=== PATIENT | male | born 1995 | race Caucasian/White ===

== ENCOUNTER 2016-10-24 20:58 | Emergency (ER) | END 2016-10-25 01:37 | disposition home or self-care (01) | DX: N45.1 Epididymitis (principal) | CPT/HCPCS: 76870; 80053; 81001; 81003; 83605; 85025; 87086; 87591; J0696; J2270; J2405; J7030; Z7610 ==

== ENCOUNTER 2017-01-03 02:59 | Emergency (ER) | payer SELFPAY ==
[~2017-01-03] VITALS: Ht 165.1 cm; Wt 70.0 kg
[~2017-01-03 02:59] MED LIST: CIPR500T4 PO; HYDR-906 PO; IBUP-1542 PO
[2017-01-03 03:09] VITALS: Ht 165.1 cm; Wt 70.0 kg
[2017-01-03] MEDS ORDERED: KETOROLAC 60 MG INJ IM STA (04:27)
[2017-01-03] MEDS ORDERED: DIPHTH/TET/ACEL PERTUSS (ADULT) 0.5 ML VIAL IM* ONE (04:30)
--- NOTE | 2017-01-03 04:51 | ERD ---
ER Documentation Chief Complaint Date/Time DATE: 01/03/17 TIME: 04:49 Chief Complaint R thumb injury 3 days ago (ANGELICA NAYAK NP) HPI 21-year-old male presents to emergency department for complaints of pain on the right thumb, patient states that a fiberglass foreign body may have when inside the right thumb. Patient is complaining of pain sharp pain, 6/10 scale, not better with anything, worse upon touching the area. Patient did not take any medications to help with symptoms. Patient denies any direct trauma and affected area. Patient denies any numbness or tingling. Patient denies any fever or chills. (ANGELICA NAYAK NP) ROS All systems reviewed and are negative except as per history of present illness. (ANGELICA NAYAK NP) Medications Home Meds Active Scripts Tramadol HCl (Tramadol HCl) 50 Mg Tablet, 50 MG PO Q6 for SEVERE PAIN LEVEL 7-10 , #20 TAB Prov:ANGELICA NAYAK NP 01/03/17 Ibuprofen* (Motrin*) 600 Mg Tab, 600 MG PO Q6H Y for PAIN AND OR ELEVATED TEMP, #30 TAB Prov:ANGELICA NAYAK NP 01/03/17 Sulfamethoxazole/Trimethoprim* (Bactrim Ds* Tablet) 1 Each Tablet, 1 TAB PO BID , #20 TAB Prov:ANGELICA NAYAK NP 01/03/17 Cephalexin* (Keflex*) 500 Mg Capsule, 500 MG PO QID for 10 Days, CAP Prov:ANGELICA NAYAK NP 01/03/17 Hydrocodone/Acetaminophen ([place] 5-325 Tablet) 1 Each Tablet, 1 TAB PO Q6H Y for SEVERE PAIN LEVEL 7-10, #20 TAB Prov:ANGELICA NAYAK NP 10/25/16 Ibuprofen* (Motrin*) 600 Mg Tab, 600 MG PO Q6H Y for PAIN AND OR ELEVATED TEMP, #30 TAB Prov:ANGELICA NAYAK NP 10/25/16 Ciprofloxacin Hcl* (Ciprofloxacin Hcl*) 500 Mg Tablet, 500 MG PO BID for 10 Days , TAB Prov:ANGELICA NAYAK NP 10/25/16 Reported Medications [none] Unknown Strength No Conflict Check 10/24/16 Allergies Allergies: Coded Allergies: No Known Allergy (Unverified , 10/24/16) PMhx/Soc Hx Alcohol Use: No Hx Substance Use: Yes (smoke meth) Hx Tobacco Use: No (ANGELICA NAYAK NP) FmHx Family History: No coronary disease, No diabetes, No other (ANGELICA NAYAK NP) Physical Exam Vitals Vital Signs Date Time Temp Pulse Resp B/P Pulse Ox O2 Delivery O2 Flow Rate FiO2 01/03/17 03:09 98.9 108 18 135/76 97 (LUCIANA HERNÁNDEZ) Physical Exam GENERAL: The patient is well developed and appropriate for usual state of health, in no apparent distress. CHEST: Clear to auscultation bilaterally. There are no rales, wheezes or rhonchi. HEART: Regular rate and rhythm. No murmurs, clicks, rubs or gallops. No S3 or S4. ABDOMEN: Soft, nontender and nondistended. Good bowel sounds. No rebound or guarding. No gross peritonitis. No gross organomegaly or masses. No Arias sign or McBurney point tenderness. BACK: No midline or flank tenderness. EXTREMITIES: Equal pulses bilaterally. There is no peripheral clubbing, cyanosis or edema. No focal swelling or erythema. Full range of motion. Grossly neurovascularly intact. NEURO: Alert and oriented. Cranial nerves 2-12 intact. Motor strength in all 4 extremities with 5/5 strength. Sensation grossly intact. Normal speech and gait. SKIN: Noted puncture wound on the palmar aspect of the right thumb. Mild tenderness on palpation, no palpable foreign body. There is no apparent ecchymosis or petechia. The skin is warm and dry. HEMATOLOGIC AND LYMPHATIC: There is no evidence of excessive bruising or lymphedema. No gross cervical, axillary, or inguinal lymphadenopathy. (ANGELICA NAYAK NP) Results 24 hrs Current Medications Medications (Trade) Dose Ordered Sig/Ernestina Route PRN Reason Start Time Stop Time Status Last Admin Dose Admin Diphtheria/ Tetanus/Acell Pertussis (Adacel) 0.5 ml ONCE ONCE IM* 01/03/17 04:30 01/03/17 04:31 DC 01/03/17 04:57 Ketorolac Tromethamine (Toradol) 60 mg ONCE STAT IM 01/03/17 04:27 01/03/17 04:30 DC 01/03/17 04:58 Lidocaine (Xylocaine 1% (Mdv) 20 ml) 2 ml ONCE ONCE SC 01/03/17 05:30 01/03/17 05:31 DC (LUCIANA HERNÁNDEZ) Results 24 hrs Tdap was given to prevent tetanus. Patient tolerated medication well.Patient was given medication for pain here in emergency department, after treatment, patient verbalized feeling much better. Patient's pain is improved. (ANGELICA NAYAK NP) Procedures/MDM Procedure Note: After obtaining informed consent, the wound was irrigated with 250 ml of normal saline and cleaned with diluted betadine. Using aseptic technique, 2 ml of 1% lidocaine was injected on the subcutaneous tissue of the abscess where the fluctuant area is at. After the anesthetic, a 1 cm incision was done in the middle of the fluctuant area of the abscess. Pustular discharge was drained from the abscess. . After the procedure, dry dressing was applied on the area. Patient tolerated procedure well. No foreign body noted. Medical Decision Making: Patient's pain is most likely consistent with a felon of the finger infected puncture wound, no foreign body noted. There is no suspicion for neurovascular compromise. Patient has intact sensation and circulation of the affected extremity. There is low suspicion for septic arthritis. Patient does not have any fever. Radiology exams of the affected area does not show any fracture or dislocation. Disposition: Home. Patient is given prescription for ibuprofen for pain, tramadol for severe pain, Keflex, Bactrim. Patient was advised to elevate the affected area and apply ice on affected area. Patient was advised that if symptoms are worse, numbness, tingling, high fever, unable to move joint, worsening symptoms, to return to emergency department immediately. Otherwise, patient is advised to follow up with the primary care doctor in 2 days for recheck. (ANGELICA NAYAK NP) Ultrasound right thumb/wound Impression: No foreign body identified as questioned. Heterogenous echogenic lesion within the soft tissues measuring 1.4 x 0.6 x 0.4 cm, which may reflect a phlegmon. No focal drainable collection. If there is a question of soft tissues infection, pre-and postcontrast MRI can be performed for further evaluation. X-ray of the right hand Impression: Unremarkable right hand radiographs. Patient is hemodynamically stable this time. He is alert oriented 4. Denies headache, dizziness, neck pain, shoulder pain, chest pain, abdominal pain. No episode of emesis in the emergency department. Right thumb has no neurovascular deficit. There is no neurovascular deficit. No neurological deficits. Patient stated that he feels much better at this time and wanted to go home. Discharge with prescriptions of Keflex, Bactrim, tramadol, Motrin. Come back in 2 days for wound check. Follow-up with primary care physician in the next 24-48 hours. Medical decision makin-year-old male who presented emergency department for right hand/thumb pain. Diagnosed with felon, infected punctured wound. Seen initially by Angelica Dye NP. Patient instructed Instructed to follow-up with his PCP in 24-48 hours. Come back in 2 days for a wound check. Instructed to Call 911 for chest pain, shortness of breath. Advised to come back here in ED as soon as possible for severity of symptoms which includes but not limited to: any new symptoms; shortness of breath/difficulty of breathing; cardiovascular changes; severe gastrointestinal symptoms; signs and symptoms of bleeding and or infection; signs of compartment syndrome/neurovascular changes; neurological changes/deficits. Patient and family member verbalized understanding. Upon discharge, patient is alert and oriented x 4, speaks full and clear sentences, denies pain, has no neurological deficits, has no neurovascular deficits, difficulty of breathing. Breathing even and unlabored. Lung sounds are clear to auscultation. Not in distress. Appears comfortable. Ambulatory with steady gait. Appears satisfied with care provided here in ED. (LUCIANA HERNÁNDEZ) Departure Diagnosis: Primary Impression: Felon of finger Additional Impression: Infected puncture wound Condition: Stable Patient Instructions: Abscess, Incision And Drainage Additional Instructions: Patient is given prescription for ibuprofen for pain, tramadol for severe pain, Keflex, Bactrim. Patient was advised to elevate the affected area and apply ice on affected area. Patient was advised that if symptoms are worse, numbness, tingling, high fever, unable to move joint, worsening symptoms, to return to emergency department immediately. Otherwise, patient is advised to follow up with the primary care doctor in 2 days for recheck. ANGELICA NAYAK NP January 03, 2017 04:51 LUCIANA HERNÁNDEZ January 03, 2017 07:42
[2017-01-03] MEDS ORDERED: LIDOCAINE 1% (MDV) 20 ML INJ SC ONE (05:30)
[2017-01-03] MEDS ORDERED: SULF1TAB31 PO (05:51)
[2017-01-03] MEDS ORDERED: IBUP-1542 PO (05:51)
[2017-01-03] MEDS ORDERED: TRAM50TA2 PO (05:51)
[2017-01-03] MEDS ORDERED: CEPH-443 PO (05:51)
--- NOTE | 2017-01-03 06:21 | RADRPT ---
PROCEDURE: RIGHT HAND - 3 VIEWS CLINICAL INDICATION: 21-year-old male with right hand pain. TECHNIQUE: AP, lateral and oblique views of the right hand were obtained. The images reviewed on a PACS workstation. COMPARISON: None. FINDINGS: The bones of the hand appear intact, with no evidence of fracture, dislocation, or subluxation. The joint spaces are preserved. Bone mineralization is within normal limits. No radiopaque foreign body is seen. IMPRESSION: Unremarkable right hand radiographs. .Cornell Martinez MD, MD Date Time Electronically viewed and signed by .Cornell Martinez MD, on 01/03/2017 06:20 .M/
--- NOTE | 2017-01-03 07:35 | RADRPT ---
PROCEDURE: US soft tissue CLINICAL INDICATION: Right thumb wound. TECHNIQUE: Multiple eaton scale images were obtained of the patient's right done using a high-frequ ency linear transducer. COMPARISON: Plain film dated 01/03/2017. FINDINGS: No foreign body is identified in the right thumb soft tissues in the region of the patient's wound. There is an area of heterogeneous echogenicity within the soft tissues measuring 1.4 x 0.6 x 0.4 cm, which may reflect a phlegmon. No focal drainable collection is identified. IMPRESSION: 1. No foreign body identified, as questioned. 2. Heterogeneous echogenicity within the soft tissues measuring 1.4 0.6 x 0.4 cm, which may reflect a phlegmon. No focal drainable collection. If there is a question of soft tissue infection, pre an d post contrast MRI can be performed for further evaluation. RPTAT: EE .Randy Fang MD, Date Time Electronically viewed and signed by .Randy Fang MD, MD on 01/03/2017 07:35 .P/
== END 2017-01-03 08:20 | disposition home or self-care (01) ==
LOC: FTE 02:59
DX: L03.011 Cellulitis of right finger (principal); S61.031A Puncture wound without foreign body of right thumb without damage to nail, initial encounter; W25.XXXA Contact with sharp glass, initial encounter; Y92.9 Unspecified place or not applicable; Z23 Encounter for immunization
CPT/HCPCS: 26010; 73130; 76536; 90471; 90715; 96372; 99285; J1885

== ENCOUNTER 2018-06-17 22:55 | Emergency (ER) | END 2018-06-18 01:36 | disposition home or self-care (01) ==